=== PATIENT | female | born 1990 | race Caucasian/White ===

== ENCOUNTER 2023-03-21 18:47 | Emergency (ER) | payer SELFPAY ==
[~2023-03-21] VITALS: Ht 154.9 cm; Wt 54.8 kg
[2023-03-21 19:26] VITALS: BP 142/83; PULSE 87; RESP 16; TEMP 99.1; O2SAT 100
[2023-03-21] MEDS ORDERED: NAPR-681 MT (23:39)
== END 2023-03-21 23:53 | disposition home or self-care (01) ==
LOC: ER 18:47
DX: R07.0 Pain in throat (principal)
CPT/HCPCS: 70360; 81025; 99283